=== PATIENT | male | born 1965 | race Caucasian/White ===

== ENCOUNTER 2019-11-05 14:50 | Outpatient (CLI) | payer OTHER ==
--- NOTE | 2019-11-05 15:15 | RAD ---
Exam:3 views left wrist HISTORY: Pain COMPARISON: None FINDINGS: Mild narrowing of the radiocarpal joint space. There is blunting of the left radial and uln ar styloid. No fracture, cortical irregularity or periosteal reaction. Nonspecific density projects along the distal radial soft tissues. Correlate for 2 mm foreign body. IMPRESSION: Degenerative changes as above. Blunting of the radial styloid. Correlate for rheumatoid a rthropathy.
== END 2019-11-05 14:51 | disposition home or self-care (01) ==
LOC: RAD-FRANK 14:50
PROVIDERS: ATTEND Nurse Practitioner Family
DX: M25.532 Pain in left wrist (principal); M19.032 Primary osteoarthritis, left wrist